=== PATIENT | male | born 1955 | race Caucasian/White ===

== ENCOUNTER → 2016-10-07 | Outpatient (CLI) | payer OTHER ==
[~2016-10-07] MED LIST: BACTRIM DS1 TAB PO; CELEBREX200 MG PO; COLACE100 MG PO; FEOSOL325 MG PO; FLOMAX0.4 MG PO; FLORASTOR250 MG PO; MIRALAX17 GM PO; NEURONTIN300 MG PO; NIZORAL30 GM TOP; NORCO 5-325 TA1 EACH PO; PAIN RELIEVER500 MG PO; PROTONIX40 MG PO; REMERON15 MG PO; SKELAXIN800 MG PO; TUMS REGULAR ST1 TAB PO
== END | disposition disaster alternative care site (69) ==
LOC: GRAD 08:45
DX: Z48.89 Encounter for other specified surgical aftercare (principal); M89.9 Disorder of bone, unspecified; Z98.890 Other specified postprocedural states

== ENCOUNTER → 2016-11-18 | Outpatient (CLI) | payer OTHER | END | disposition disaster alternative care site (69) | LOC: GRAD 08:33 | DX: Z48.89 Encounter for other specified surgical aftercare (principal); M47.896 Other spondylosis, lumbar region; Z98.890 Other specified postprocedural states ==

== ENCOUNTER → 2016-12-05 | Outpatient (CLI) | payer OTHER | END | disposition disaster alternative care site (69) | LOC: GRAD 12-03 16:00 | DX: M25.512 Pain in left shoulder (principal); C90.00 Multiple myeloma not having achieved remission ==

== ENCOUNTER → 2017-01-20 | Outpatient (CLI) | payer OTHER | END | disposition disaster alternative care site (69) | LOC: GRAD 12:54 | DX: Z47.89 Encounter for other orthopedic aftercare (principal); M43.27 Fusion of spine, lumbosacral region; M43.16 Spondylolisthesis, lumbar region; M25.78 Osteophyte, vertebrae ==